=== PATIENT | male | born 1955 | race Caucasian/White ===

== ENCOUNTER 2019-11-02 14:06 | Emergency (ER) | payer MEDICARE, OTHER ==
[2019-11-02] MEDS ORDERED: Lidocaine 1% 20 ML MDV INFILT ONE (14:07)
--- NOTE | 2019-11-02 14:23 | EDM.PDOC ---
ED HPI GENERAL MEDICAL PROBLEM - General Stated Complaint: LET MIDDLE FINGER INFECTED Time Seen by Provider: 11/02/19 14:23 Source of Information: Reports: Patient History Limitations: Reports: No Limitations - History of Present Illness INITIAL COMMENTS - FREE TEXT/NARRATIVE: 64-year-old male who reports onset of left middle fingertip soreness along his nail 4 days ago. Over the past 2 days, he has noticed redness and increasing swelling with increasing pain over time. He reports the pain as a 1/10 now and just sore but it and stinging if you press on the area. He did notice some redness on the palmar aspect of that finger that seems to be spreading up the finger. He has had no fevers or chills. He has had no nausea or vomiting. He is able to use his hand without difficulty with no pain on flexion or extension of his left middle finger. There is no pain in the palm of his hand. He states that he did try to "pop" the area with a needle today without relief. There are no other associated signs or symptoms. There are no other modifying factors. Onset: Other (4 days) Duration: Getting Worse Location: Reports: Upper Extremity, Left (Left third finger) Quality: Reports: Sharp, Other (Sore) Severity: Mild Improves with: Reports: Rest Worsens with: Reports: Other (Palpation) Context: Reports: Other Associated Symptoms: Reports: No Other Symptoms Treatments [employer]: Reports: Home Treatments - Related Data Allergies Allergy/AdvReac Type Severity Reaction Status Date / Time No Known Allergies Allergy Verified 11/02/19 14:22 Home Meds: Home Meds Cephalexin [Keflex] 750 mg PO TID 7 Days #63 capsule 11/02/19 [Rx] Past Medical History Dermatologic History: Reports: Psoriasis - Past Surgical History HEENT Surgical History: Reports: Tonsillectomy GI Surgical History: Reports: Appendectomy Social & Family History - Tobacco Use Smoking Status *Q: Unknown Ever Smoked (Nonsmoker) - Alcohol Use Alcohol Use History: Yes Alcohol Use Frequency: Weekly - Living Situation & Occupation Living situation: Reports: Occupation: Retired Review of Systems - Review of Systems Review Of Systems: See Below Constitutional: Reports: No Symptoms Eyes: Reports: No Symptoms Ears: Reports: No Symptoms Nose: Reports: No Symptoms Mouth/Throat: Reports: No Symptoms Respiratory: Reports: No Symptoms Cardiovascular: Reports: No Symptoms GI/Abdominal: Reports: No Symptoms Genitourinary: Reports: No Symptoms Musculoskeletal: Reports: Other (Right hand dominant) Skin: Reports: Erythema Neurological: Reports: No Symptoms ED EXAM, GENERAL - Physical Exam Exam: See Below Exam Limited By: No Limitations General Appearance: Alert, WD/WN, No Apparent Distress Eye Exam: Bilateral Eye: EOMI, Normal Inspection Ears: Normal External Exam, Hearing Grossly Normal Ear Exam: Bilateral Ear: Auricle Normal Nose: Normal Inspection, Normal Mucosa, No Blood Throat/Mouth: Normal Inspection, Normal Oropharynx, Normal Voice, No Airway Compromise Head: Atraumatic, Normocephalic Neck: Normal Inspection, Supple, Non-Tender, Full Range of Motion Respiratory/Chest: No Respiratory Distress, Lungs Clear, Normal Breath Sounds, No Accessory Muscle Use, Chest Non-Tender Cardiovascular: Normal Peripheral Pulses, Regular Rate, Rhythm, No Murmur Peripheral Pulses: 2+: Radial (L), Radial (R) GI/Abdominal: Normal Bowel Sounds, Soft, Non-Tender Back Exam: Normal Inspection Extremities: Normal Range of Motion, No Pedal Edema, Normal Capillary Refill Neurological: Alert, Oriented, CN II-XII Intact, Normal Cognition, No Motor/ Sensory Deficits Skin Exam: Warm, Dry, Intact, No Rash, Erythema (Swelling and erythema along the radial aspect of the left third fingertip. There is also some erythema/ lymphangitic streak over the volar left third finger.) ED TRAUMA EXTREMITY PROCEDURES - I&D Site: Left middle finger Skin Prep: Providone-Iodine (Betadine) Local Anesthesia: Lidocaine: 1% Plain Local Anesthetic Volume: Other (2.5 mL) Area Incised With: Scissors Drainage: Purulent Probed to Break Up Loculations: Yes Packed With: None Sterile Dressinx4(s) Complications: No Progress/Comments: After informed verbal consent was obtained from the patient, the left middle finger was anesthetized, performing a distal digital block and also placing some anesthetic in the distal finger. Approximately 2.5 mL's of 1% lidocaine was used. There was good anesthesia and there were no complications. Betadine swabs were used to prep the area of the paronychia and using iris scissors the paronychia was opened along the nail with pus expressed. The area was then copiously irrigated with water and an appropriate supportive dressing was applied by the nursing staff. The patient tolerated this procedure well and there were no apparent complications. Course - Vital Signs Last Recorded V/S: Last Vital Signs Temp 36.2 C 11/02/19 14:30 Pulse 72 11/02/19 14:30 Resp 18 11/02/19 14:30 BP 138/89 11/02/19 14:30 Pulse Ox 96 11/02/19 14:30 - Re-Assessments/Exams Free Text/Narrative Re-Assessment/Exam: 11/02/19 15:00: Patient with paronychia that was I&D. He also had some lymphangitis and he will be placed on Keflex 750 mg 3 times a day for 7 days. Precautions and reasons for return to the emergency department were discussed with the patient prior to his discharge. Departure - Departure Time of Disposition: 15:05 Disposition: Home, Self-Care 01 Condition: Good (Improved) Clinical Impression: Paronychia of left middle finger, Acute lymphangitis of finger of left hand - Discharge Information Prescriptions: Cephalexin [Keflex] 750 mg PO TID 7 Days #63 capsule Instructions: Cellulitis, Adult, [id number], Paronychia, [id number] Referrals: Gianfranco Soto MD [Primary Care Provider] - Additional Instructions: You had an abscess of the tip of your left middle finger called a paronychia. There was also some infection spreading from this up your finger. Clean the wound with mild soap and water 2-3 times a day. Keep the area covered until it closes over. Medication as prescribed (Keflex 250 mg). You may take Tylenol and ibuprofen as needed for pain. Back to the emergency department for increasing redness, increasing pain, increasing swelling or any other concerning sign or symptom. Sepsis Event Note - Focused Exam Vital Signs: Vital Signs Temp Pulse Resp BP Pulse Ox 11/02/19 14:30 36.2 C 72 18 138/89 96 Date Exam was Performed: 11/02/19 Time Exam was Performed: 15:05
== END 2019-11-02 15:12 | disposition home or self-care (01) ==
LOC: FB.ED 14:06
DX: L03.012 Cellulitis of left finger (principal); L03.022 Acute lymphangitis of left finger
CPT/HCPCS: 10060; 99283; 99283-25; J2001

== ENCOUNTER 2020-12-14 08:55 | Day surgery (SDC) | payer MEDICARE, OTHER ==
[2020-12-14] MEDS ORDERED: Midazolam 1 MG/ML 2 ML SDV IV ONE (08:56)
[2020-12-14] MEDS ORDERED: Lidocaine 2% 100 MG/5 ML Syringe IVPUSH ONE (08:56)
[2020-12-14] MEDS ORDERED: Propofol 200 MG/20 ML SDV IV ONE (08:56)
[2020-12-14] MEDS ORDERED: Lactated Ringers 1,000 ML IV SCH (09:00)
[2020-12-14] MEDS ORDERED: Sodium Chloride 0.9% 10 ML Syringe FLUSH PRN (09:00)
--- NOTE | 2020-12-14 10:27 | PCM.OPNOTE ---
- General Post-Op/Procedure Note Date of Surgery/Procedure: 12/14/20 Operative Procedure(s): c scope Findings: normal exam Pre Op Diagnosis: change bowel habits Post-Op Diagnosis: nl exam Anesthesia Technique: MAC Primary Surgeon: Chris Rosa Anesthesia Provider: Shea Persaud Pathology: none Complications: None Condition: Good Free Text/Narrative:: see dictation #[id number]
--- NOTE | 2020-12-14 11:34 | OR ---
DATE OF OPERATION: 12/14/2020 SURGEON: Chris Rosa MD PROCEDURE PERFORMED: Colonoscopy. PREOPERATIVE DIAGNOSIS: Change in bowel habits. POSTOPERATIVE DIAGNOSIS: Normal exam. INDICATIONS FOR PROCEDURE: This is a 65-year-old white male who reports never having a colonoscopy in the past. Recently, he has noted some discomfort in the rectal area as well as narrowing of stool until like it is ribbon-like consistency. He was offered and accepted colonoscopy. DESCRIPTION OF OPERATION: After an excellent IV sedation was administered, digital rectal exam was performed. No marked abnormality was noted. Flexible colonoscope was inserted and advanced through the cecum. Prep was excellent. The following findings were noted. Ascending colon, unremarkable. Transverse colon, unremarkable. Descending colon, unremarkable. Sigmoid and rectum, there is no neoplastic process. No obvious narrowing or spasm encountered to explain the change in the caliber of his stools. The patient tolerated the procedure well, was taken to recovery room. We are recommending in addition to fiber as well as fluid to his diet. Repeat colonoscopy in 10 years, sooner on a p.r.n. basis. /[id number] /MODL
== END 2020-12-14 10:44 | disposition home or self-care (01) ==
LOC: FB.SDS 08:55
PROVIDERS: ATTEND Surgery
DX: R19.4 Change in bowel habit (principal); Z90.49 Acquired absence of other specified parts of digestive tract; E78.49 Other hyperlipidemia; Z87.891 Personal history of nicotine dependence
CPT/HCPCS: 00812; 45378; J2250; J2704; J7120; J2001